=== PATIENT | male | born 1960 | race Caucasian/White ===

== ENCOUNTER 2020-08-05 19:23 | Emergency (ER) | payer OTHER ==
[2020-08-05 20:32] LABS: BASOPHIL 0.6 % (0-2); EOSINOPHIL 2.5 % (0-5); HCT 29.3 % (42.0-52.0); HGB 9.9 g/dl (13.2-18.0); LYMPHOCYTE 19.2 % (15-48); MCHC 33.8 g/dL (32.0-36.0); MCV 88.8 fL (78.0-100.0); MONOCYTE 8.6 % (0-12); MPV 9.3 fL (6.0-9.5); NEUTROPHIL 67.9 % (41-80); NRBC 0; PLT 675 K/uL (150-400); RDW 14.7 % (11.5-14.0); WBC 12.6 K/uL (4.0-10.5)
[2020-08-05 20:52] LABS: ALBUMIN 3.1 g/dL (3.4-5.0); BILIRUBIN - TOTAL 0.2 mg/dL (0.2-1.0); BUN/CREAT RATIO (CALC) 16.7 RATIO; CREATININE 1.2 mg/dL (0.67-1.17); GLOBULIN (CALCULATION) 4.6 g/dL; POTASSIUM 3.9 mmol/L (3.5-5.1); TOTAL PROTEIN 7.7 g/dL (6.4-8.2)
[2020-08-05] MEDS ORDERED: PRINIVIL20 MG PO (22:28)
[2020-08-05] MEDS ORDERED: PEPCID AC20 MG PO (22:28)
== END 2020-08-05 22:42 | disposition home or self-care (01) ==
LOC: FER 19:23
PROVIDERS: Emergency Medicine Emergency Medical Services
DX: I10 Essential (primary) hypertension (principal); F17.210 Nicotine dependence, cigarettes, uncomplicated
CPT/HCPCS: 36415; 71045; 80053; 83605; 83690; 84484; 85025; 93005; J2060; J7030